=== PATIENT | male | born 1990 | race Hispanic/Latino ===

== ENCOUNTER 2021-08-18 21:50 | Inpatient (IN) | payer BC ==
[~2021-08-18] VITALS: Ht 182.9 cm; Wt 90.7 kg
--- NOTE | 2021-08-18 23:54 | PCM.HP ---
HISTORY & PHYSICAL HISTORY & PHYSICAL DATE OF ADMISSION: 08/18/21 TIME: 11:45pm CHIEF COMPLAINT: SOB, Cough, Congestion, Fever and Chills HISTORY OF PRESENT ILLNESS: Mr Short is a 31yo HM who presents to [facility] as a transfer patient from [facility] for Acute Respiratory Failure due to COVID-19 Pneumonia. Patient reports having worsening SOB, cough (mostly non-productive), congestion, fever and chills for the past 7-10 days. He also reports losing his sense of taste and smell for several days, but states that these have since returned to normal. Pt is also complaining of feeling light-headed with generalized weakness, to the point where he can barely walk to the Restroom alone without assistance. Patient was seen by his PCP in clinic earlier today where he was noted to be tachycardic (HR 130's), tachypneic (RR 30-40's), and hypoxic (O2 sats 80-85% RA) with moderate respiratory distress. A SARS-CoV-2 Rapid Ag Test done in clinic was found to be negative. Pt was then sent to the [place] ED for further evaluation at which time a COVID PCR test was found to be positive. Given Pt's worsening symptoms and the ED Physician's concern for eventual intubation, Pt was then transferred here to [facility] for a higher level of care. PAST MEDICAL HISTORY: Denies. PAST SURGICAL HISTORY: Denies. SOCIAL HISTORY: Pt does not smoke, drink alcohol, or use recreational drugs. He currently works in [employer]. FAMILY HISTORY: Mother alive at age 55 in good health. Father alive at age 56 also in good health. ALLERGIES: NKDA HOME MEDICATIONS: None REVIEW OF SYSTEMS: See HPI above. The remainder of the ROS to include constitutional, head, eyes, ears, nose, throat, respiratory, cardiovascular, gastrointestinal, genitourinary, musculoskeletal, dermatological, neurological, psychiatric, and lymphatic are all negative unless otherwise noted above in the HPI. PHYSICAL EXAMINATION: VITAL SIGNS: T 99.3, HR 89, RR 16, BP 126/85, O2 sat 86% 3L O2 NC GENERAL: Very anxious appearing. No family or friends currently present at bedside. HEENT: NC/AT. PERRLA. EOMI. MMM. Neck is supple. LUNGS: Decreased BS BL. No wheezing, rales, or rhonchi. HEART: Normal S1S2. RRR. No murmurs, rubs, gallops, or thrills. ABDOMEN: Soft. ND. NTTP. No rebound or guarding. Normal BS throughout. EXTREMITIES: No pitting edema noted. Weak, but moving all 4 extremities equally and completely off the bed. NEUROLOGIC: AAOx3. No motor or sensory deficits noted. Gait was not assessed at this time. LABORATORY DATA (Done in [place]): Reviewed and significant for COVID PCR positive, D-dimer 228, TPN <0.012, ESR 38, WBC 4.9, Gluc 118, AST 168, ALT 131, LDH 1560, CRP 45, Ferritin 1350, AB.44/34/83 IMAGING STUDIES (Done in [facility]): 1) CXR: Stigmata of early COVID-19 PNA with BL ground glass infiltrates. ASSESSMENT / PLAN: 1) Acute Hypoxemic Respiratory Failure: Will continue to monitor closely and provide supportive care PRN. Will also wean off O2 as tolerated. 2) COVID-19 Infection: Pt states that he has not yet been vaccinated. Will start Remdesivir, Dexamethasone, Vitamin C, Zinc, and check a Vitamin D level . 3) BL Pneumonia: Likely due to #2 above, but will go ahead and start Rocephin and Azithromycin for now until all cultures result. Will also check for Influenza. 4) Mildly Elevated LFTs: Will recheck labs in the AM, and consider obtaining a RUQ sonogram to further evaluate if these levels should worsen overnight. Currently, patient reports no abdominal pain, nausea, or vomiting. 5) Generalized Weakness: Due to acute illness. Will provide supportive care PRN. 6) GI and DVT prophylaxis: Will start Pepcid and Lovenox (1/2 T-dose given #2 above). TARA THOMPSON MD Aug 18, 2021 23:54
[2021-08-19] MEDS ORDERED: TYLENOL PO PRN
[2021-08-19] MEDS ORDERED: REMDESIVIR (EUA) 200 MG in NS 100ML 100 ML IV STA
[2021-08-19 00:28] VITALS: BP 126/85
[2021-08-19] MEDS: DECADRON IV SCH ×2 (01:00→09:06)
[2021-08-19] MEDS ORDERED: NS 250ML 250 ML ONE ×2 (02:17→09:00)
[2021-08-19 03:15] LABS: BILIRUBIN,URINE NEGATIVE (NEGATIVE)
[2021-08-19 04:51] LABS: BASOPHIL % 0.4 % (0.0-0.2); LYMPHOCYTES # 0.47 10^3/uL1 (1.0-4.8); LYMPHOCYTES % 8.9 % (24.0-44.0); MEAN CORP HGB 29.1 pg (26-34); MONOCYTES # 0.2 10^3/uL (0.3-0.8); NEUTROPHIL # 4.6 10^3/uL (1.8-7.7); NEUTROPHILS % 87.7 % (41.0-85.0); PLATELET COUNT 145 10^3/uL (150-400); RED CELL DISTRIBUTION WIDTH 12.2 % (11.5-14.5)
--- NOTE | 2021-08-19 05:36 | NUR ---
Dr Aguilar ordered a Vitamin D 25 hydroxy lab to be drawn in the am. The only Vit D lab available to order in the computer is a Vitamin D total hydroxy lab. Lab voiced that the Vitamin D hydroxy has been changed to the vitamin D total hydroxy and the results would be the same. Dr Aguilar notified and left message on voice mail.(no pt information was disclosed).
[2021-08-19 05:38] LABS: CALCIUM 8.5 mg/dL (8.4-10.5); CARBON DIOXIDE 24.3 mmol/L (20.0-32)
[2021-08-19] MEDS ORDERED: NS 100ML 100 ML IV ONE (06:49)
[2021-08-19] MEDS ORDERED: ROCEPHIN ONE (06:49)
[2021-08-19] MEDS: ROCEPHIN 1,000 MG in NS 100ML 100 ML IV SCH (06:51)
--- NOTE | 2021-08-19 08:35 | DIREP ---
PROCEDURE:CHEST 1 VIEW COMPARISON:[facility], CR, XRAY CHEST SINGLE VW, 08/18/2021, 04:03 PM. INDICATIONS:COVID-19 FINDINGS: LUNGS/PLEURA:There are ground-glass opacities scattered throughout both lungs increased compared to prior study. VASCULATURE:Normal. Unremarkable pulmonary vasculature. CARDIAC:Normal. No cardiac silhouette abnormality or cardiomegaly. MEDIASTINUM:Normal. No visible mass or adenopathy. BONES:Normal. No fracture or visible bony lesion. OTHER:Negative. CONCLUSION:Interval worsening with increasing scattered ground-glass opacities throughout both lungs compared to prior study. Dictated by: Kuldip Palencia M.D. on 08/19/2021 at 08:33 AM
[2021-08-19] MEDS ORDERED: LOVENOX SQ SCH (09:00)
--- NOTE | 2021-08-19 09:00 | PCM.EKG ---
[facility] Test Date: 2021-08-19 Test Time: 07:23:24 Pat Name: GEETHA LENNON Department: Room: 312 A Gender: M [employer]: : 1990 Requested By: TARA THOMPSON Order Number: [id number] Reading MD: Measurements Intervals [place] Rate: 77 P: 41 AL: 165 QRS: -12 QRSD: 97 T: 16 QT: 383 QTc: 434 Interpretive Statements Sinus rhythm No previous ECG available for comparison Please click the below link to view image of tracing.
[2021-08-19] MEDS: ZINC SULFATE PO SCH (09:07)
[2021-08-19] MEDS: MUCINEX PO SCH ×2 (09:07→21:00)
[2021-08-19] MEDS: PEPCID PO SCH ×2 (09:08→21:00)
[2021-08-19] MEDS: VITAMIN C PO SCH ×2 (09:08→21:00)
[2021-08-19] MEDS: ZITHROMAX 500 MG in NS 250ML 250 ML IV SCH (09:08)
[2021-08-19] MEDS ORDERED: REMDESIVIR IV ONE (09:24)
[2021-08-19 12:09] VITALS: BP 124/79
--- NOTE | 2021-08-19 14:38 | PRM.PN ---
Subjective Subjective Date: Aug 19, 2021 Time: 09:00 Subjective Patient still short of breath with any minimal exertion, on 3 L/min nasal cannula. Review of Systems Constitutional: Chills, Weakness Respiratory: Cough, Dry, Shortness of breath Cardiovascular: Palpitations Objective Vitals and I/O Vital Sign - Last 24 Hours 08/19/21 08/19/21 08/19/21 08/19/21 00:28 00:28 02:04 07:43 Temp 99.3 Resp 16 16 B/P (MAP) 126/85 (99) Pulse Ox 86 86 92 O2 Delivery Nasal Canula Nasal Cannula Nasal Cannula O2 Flow Rate 3.00 3.00 3.00 FiO2 32 08/19/21 08/19/21 10:30 12:09 Temp 99.1 Pulse 79 78 Resp 20 19 B/P (MAP) 124/79 (94) Pulse Ox 90 98 O2 Delivery T-piece FiO2 32 General: Alert, Oriented X3, moderate distress HEENT: Atraumatic, PERRLA Neck: Supple, No JVD Lungs: Other (Coarse bilateral breath sounds, respirations labored) Heart: Regular rate, Normal S1, Normal S2 Abdomen: Normal bowel sounds, Soft Extremities: No clubbing, No cyanosis Skin: No rashes, No breakdown Neuro: Normal speech, Normal tone Psych/Mental Status: Mental status NL, Mood NL All Results(Lab/Rad) Laboratory Tests Test 08/19/21 01:55 08/19/21 04:36 08/19/21 12:45 Urine Collection Type CCMS Urine Color YELLOW Urine Appearance CLEAR Urine Bilirubin NEGATIVE Urine Ketones 2+ Urine Specific [place] 1.025 Urine pH 7.0 Urine Protein 2+ Urine Urobilinogen 1.0 E.U./dL Urine Nitrate NEGATIVE Urine Leukocyte Esterase NEGATIVE Urine Glucose (Auto)(UA) NEGATIVE Urine Blood NEGATIVE Urine RBC NONE SEEN RBC/HPF Urine WBC 0-2 WBC/HPF Urine Squamous Epithelial Cells FEW Urine Bacteria FEW White Blood Count 5.3 10^3/uL Red Blood Count 5.19 10^6/uL Hemoglobin 15.1 g/dL Hematocrit 44.9 % Mean Corpuscular Volume 86.5 fL Mean Corpuscular Hemoglobin 29.1 pg Mean Corpuscular Hemoglobin Concent 33.6 g/dL Red Cell Distribution Width 12.2 % Platelet Count 145 10^3/uL Mean Platelet Volume 9.7 fL Neutrophils (%) (Auto) 87.7 % Lymphocytes (%) (Auto) 8.9 % Monocytes (%) (Auto) 3.0 % Neutrophils # (Auto) 4.6 10^3/uL Lymphocytes # (Auto) 0.47 10^3/uL1 Monocytes # (Auto) 0.2 10^3/uL Absolute Immature Granulocyte (auto 0.02 10^3 u/L Absolute Eosinophils (auto) 0.0 10^3/uL Immature Granulocytes % 0.40 % Eosinophils % 0.0 % Basophils % 0.4 % Basophils # 0.0 10^3/uL Prothrombin Time 10.6 SEC Prothrombin Time INR (Non-Therap) 1.0 Activated Partial Thromboplast Time 28.2 SEC D-Dimer 0.69 mg/L Sodium Level 137 mmol/L Potassium Level 3.9 mmol/L Chloride Level 102.0 mmol/L Carbon Dioxide Level 24.3 mmol/L Anion Gap 14.6 Blood Urea Nitrogen 10 mg/dL Creatinine 0.90 mg/dL Estimated GFR () 119.9 Est GFR (CKD-EPI)(Non-Afr [place]) 99.1 BUN/Creatinine Ratio 11.0 Glucose Level 155 mg/dL Calcium Level 8.5 mg/dL Phosphorus Level 3.2 mg/dL Magnesium Level 2.2 mg/dL Ferritin 2054 ng/mL Total Bilirubin 0.4 mg/dL Aspartate Amino Transf (AST/SGOT) 105 U/L Alanine Aminotransferase (ALT/SGPT) 130 U/L Alkaline Phosphatase 81 U/L Lactate Dehydrogenase 438 U/L C-Reactive Protein 6.27 mg/dL Total Protein 7.1 g/dL Albumin 3.1 g/dL Globulin 4.0 Albumin/Globulin Ratio 0.775 Vitamin D 25-Hydroxy 23.8 ng/mL Procalcitonin < 0.05 ng/mL Influenza Type A Antigen NEGATIVE Influenza Type B Antigen NEGATIVE Current Medications Medications (Trade) Dose Ordered Sig/Sanjiv Route PRN Reason Start Time Stop Time Status Last Admin Dose Admin Acetaminophen (Tylenol) 1,000 mg Q6H PRN PO Fever or Pain 08/19/21 00:00 09/18/21 00:00 08/19/21 02:20 Remdesivir 200 mg/ Sodium Chloride 140 ml @ 120.69 mls/ hr OT STAT IV 08/19/21 00:00 08/19/21 09:25 DC 08/19/21 01:30 Remdesivir 100 mg/ Sodium Chloride 120 ml @ 111.111 mls/hr Q24HRS IV 08/19/21 22:00 09/18/21 21:59 Ascorbic Acid (Vitamin C) 500 mg BID PO 08/19/21 09:00 09/18/21 08:59 08/19/21 09:08 Zinc Sulfate (Zinc Sulfate) 220 mg DAILY PO 08/19/21 09:00 09/18/21 08:59 08/19/21 09:07 Enoxaparin Sodium (Lovenox) 40 mg BID SQ 08/19/21 09:00 09/18/21 08:59 08/19/21 09:08 Famotidine (Pepcid) 20 mg BID PO 08/19/21 09:00 09/18/21 08:59 08/19/21 09:08 Ceftriaxone Sodium 1000 mg/ Sodium Chloride 100 ml @ 100 mls/hr Q24HRS IV 08/19/21 00:00 09/18/21 00:00 08/19/21 06:51 Azithromycin 500 mg/Sodium Chloride 250 ml @ 175 mls/hr Q24HRS IV 08/19/21 00:00 09/18/21 00:00 08/19/21 09:08 Guaifenesin (Mucinex) 600 mg BID PO 08/19/21 09:00 09/18/21 08:59 08/19/21 09:07 Sodium Chloride 250 ml @ ud STK-MED ONCE .ROUTE 08/19/21 02:17 08/19/21 02:17 DC Ceftriaxone Sodium (Rocephin) 1,000 mg STK-MED ONCE .ROUTE 08/19/21 06:49 08/19/21 06:49 DC Sodium Chloride 100 ml @ ud STK-MED ONCE IV 08/19/21 06:49 08/19/21 06:49 DC Sodium Chloride 250 ml @ ud STK-MED ONCE .ROUTE 08/19/21 09:00 08/19/21 09:01 DC Assessment/Plan Assessment/Plan Assessment/Plan Plan Oxygen to keep saturation more than 92% Remdesivir Steroids Continue to biotics GI and DVT prophylaxis Problems: (1) Pneumonia due to COVID-19 virus ICD Code: U07.1 - COVID-19; J12.82 - Pneumonia due to coronavirus disease 2019 SNOMED: 771736823520107702 (2) Acute and chronic respiratory failure with hypoxia ICD Code: J96.21 - Acute and chronic respiratory failure with hypoxia SNOMED: 61813690, 532401471 JEREMIAH SUN MD Aug 19, 2021 14:38
[2021-08-19 17:26] VITALS: BP 112/66
[2021-08-19 20:00] VITALS: BP 113/78
[2021-08-19] MEDS: LOVENOX SQ SCH (21:00)
[2021-08-19] MEDS: REMDESIVIR (EUA) 100 MG in NS 100ML 100 ML IV SCH (21:52)
[2021-08-20] VITALS: BP 113/72
[2021-08-20] MEDS: ROCEPHIN 1,000 MG in NS 100ML 100 ML IV SCH
[2021-08-20] MEDS: ZITHROMAX 500 MG in NS 250ML 250 ML IV SCH (02:00)
[2021-08-20 04:00] VITALS: BP 104/68
[2021-08-20 05:22] LABS: BASOPHIL % 0.1 % (0.0-0.2); LYMPHOCYTES # 0.68 10^3/uL1 (1.0-4.8); LYMPHOCYTES % 9.3 % (24.0-44.0); MONOCYTES # 0.6 10^3/uL (0.3-0.8); MONOCYTES % 8.2 % (5.0-12.0); NEUTROPHILS % 82.4 % (41.0-85.0); PLATELET COUNT 176 10^3/uL (150-400); RED CELL DISTRIBUTION WIDTH 12.2 % (11.5-14.5)
[2021-08-20 05:51] LABS: CALCIUM 8.7 mg/dL (8.4-10.5); CARBON DIOXIDE 25.9 mmol/L (20.0-32)
[2021-08-20 07:00] VITALS: BP 116/77
[2021-08-20 08:14] LABS: HEP A AB, IgM Negative (Negative)
[2021-08-20] MEDS: VITAMIN C PO SCH ×2 (08:53→21:00)
[2021-08-20] MEDS: DECADRON IV SCH (08:53)
[2021-08-20] MEDS: LOVENOX SQ SCH ×2 (08:53→21:00)
[2021-08-20] MEDS: MUCINEX PO SCH ×2 (08:54→21:00)
[2021-08-20] MEDS: PEPCID PO SCH ×2 (08:54→21:00)
[2021-08-20] MEDS: ZINC SULFATE PO SCH (08:54)
[2021-08-20 11:11] VITALS: BP 103/65
--- NOTE | 2021-08-20 15:02 | PRM.PN ---
Subjective Subjective Date: Aug 20, 2021 Time: 09:00 Subjective Patient out of bed in a chair. He said that he is breathing better when he sits outside bed in a chair. Using incentive spirometry. Oxygen saturation 93% on 3 L/min nasal cannula. Review of Systems Constitutional: Chills, Weakness Respiratory: Cough, Dry, Shortness of breath Cardiovascular: Palpitations Objective Vitals and I/O Vital Sign - Last 24 Hours 08/19/21 08/19/21 08/19/21 08/20/21 17:26 20:00 20:52 00:00 Temp 98.6 98.6 98.4 Pulse 78 80 78 80 Resp 18 18 18 20 B/P (MAP) 112/66 (81) 113/78 (90) 113/72 (86) Pulse Ox 92 93 94 92 O2 Delivery Nasal Canula Nasal Canula Nasal Cannula Nasal Canula O2 Flow Rate 3.00 3.00 3.00 3.00 FiO2 32 08/20/21 08/20/21 08/20/21 08/20/21 01:07 01:30 04:00 07:00 Temp 98.0 98.8 Pulse 80 79 Resp 20 17 B/P (MAP) 104/68 (80) 116/77 (90) Pulse Ox 91 89 O2 Delivery Nasal Cannula Nasal Cannula Nasal [place]ula O2 Flow Rate 3.00 3.00 08/20/21 08/20/21 08/20/21 07:10 08:20 11:11 Temp 98.3 Pulse 84 76 Resp 20 16 B/P (MAP) 103/65 (78) Pulse Ox 92 93 O2 Delivery Nasal Cannula Nasal Cannula O2 Flow Rate 3.00 3.00 FiO2 32 Intake and Output 08/20/21 06:59 Intake Total 1602 ml Output Total 500 ml Balance 1102 ml General: Alert, Oriented X3, moderate distress HEENT: Atraumatic, PERRLA Neck: Supple, No JVD Lungs: Other (Coarse bilateral breath sounds, respirations labored) Heart: Regular rate, Normal S1, Normal S2 Abdomen: Normal bowel sounds, Soft Extremities: No clubbing, No cyanosis Skin: No rashes, No breakdown Neuro: Normal speech, Normal tone Psych/Mental Status: Mental status NL, Mood NL All Results(Lab/Rad) Laboratory Tests Test 08/19/21 01:55 08/19/21 04:36 08/19/21 12:45 Urine Collection Type CCMS Urine Color YELLOW Urine Appearance CLEAR Urine Bilirubin NEGATIVE Urine Ketones 2+ Urine Specific [place] 1.025 Urine pH 7.0 Urine Protein 2+ Urine Urobilinogen 1.0 E.U./dL Urine Nitrate NEGATIVE Urine Leukocyte Esterase NEGATIVE Urine Glucose (Auto)(UA) NEGATIVE Urine Blood NEGATIVE Urine RBC NONE SEEN RBC/HPF Urine WBC 0-2 WBC/HPF Urine Squamous Epithelial Cells FEW Urine Bacteria FEW White Blood Count 5.3 10^3/uL Red Blood Count 5.19 10^6/uL Hemoglobin 15.1 g/dL Hematocrit 44.9 % Mean Corpuscular Volume 86.5 fL Mean Corpuscular Hemoglobin 29.1 pg Mean Corpuscular Hemoglobin Concent 33.6 g/dL Red Cell Distribution Width 12.2 % Platelet Count 145 10^3/uL Mean Platelet Volume 9.7 fL Neutrophils (%) (Auto) 87.7 % Lymphocytes (%) (Auto) 8.9 % Monocytes (%) (Auto) 3.0 % Neutrophils # (Auto) 4.6 10^3/uL Lymphocytes # (Auto) 0.47 10^3/uL1 Monocytes # (Auto) 0.2 10^3/uL Absolute Immature Granulocyte (auto 0.02 10^3 u/L Absolute Eosinophils (auto) 0.0 10^3/uL Immature Granulocytes % 0.40 % Eosinophils % 0.0 % Basophils % 0.4 % Basophils # 0.0 10^3/uL Prothrombin Time 10.6 SEC Prothrombin Time INR (Non-Therap) 1.0 Activated Partial Thromboplast Time 28.2 SEC D-Dimer 0.69 mg/L Sodium Level 137 mmol/L Potassium Level 3.9 mmol/L Chloride Level 102.0 mmol/L Carbon Dioxide Level 24.3 mmol/L Anion Gap 14.6 Blood Urea Nitrogen 10 mg/dL Creatinine 0.90 mg/dL Estimated GFR () 119.9 Est GFR (CKD-EPI)(Non-Afr [place]) 99.1 BUN/Creatinine Ratio 11.0 Glucose Level 155 mg/dL Calcium Level 8.5 mg/dL Phosphorus Level 3.2 mg/dL Magnesium Level 2.2 mg/dL Ferritin 2054 ng/mL Total Bilirubin 0.4 mg/dL Aspartate Amino Transf (AST/SGOT) 105 U/L Alanine Aminotransferase (ALT/SGPT) 130 U/L Alkaline Phosphatase 81 U/L Lactate Dehydrogenase 438 U/L C-Reactive Protein 6.27 mg/dL Total Protein 7.1 g/dL Albumin 3.1 g/dL Globulin 4.0 Albumin/Globulin Ratio 0.775 Vitamin D 25-Hydroxy 23.8 ng/mL Procalcitonin < 0.05 ng/mL Influenza Type A Antigen NEGATIVE Influenza Type B Antigen NEGATIVE Current Medications Medications (Trade) Dose Ordered Sig/Sanjiv Route PRN Reason Start Time Stop Time Status Last Admin Dose Admin Acetaminophen (Tylenol) 1,000 mg Q6H PRN PO Fever or Pain 08/19/21 00:00 09/18/21 00:00 08/19/21 02:20 Remdesivir 200 mg/ Sodium Chloride 140 ml @ 120.69 mls/ hr OT STAT IV 08/19/21 00:00 08/19/21 09:25 DC 08/19/21 01:30 Remdesivir 100 mg/ Sodium Chloride 120 ml @ 111.111 mls/hr Q24HRS IV 08/19/21 22:00 09/18/21 21:59 Ascorbic Acid (Vitamin C) 500 mg BID PO 08/19/21 09:00 09/18/21 08:59 08/19/21 09:08 Zinc Sulfate (Zinc Sulfate) 220 mg DAILY PO 08/19/21 09:00 09/18/21 08:59 08/19/21 09:07 Enoxaparin Sodium (Lovenox) 40 mg BID SQ 08/19/21 09:00 09/18/21 08:59 08/19/21 09:08 Famotidine (Pepcid) 20 mg BID PO 08/19/21 09:00 09/18/21 08:59 08/19/21 09:08 Ceftriaxone Sodium 1000 mg/ Sodium Chloride 100 ml @ 100 mls/hr Q24HRS IV 08/19/21 00:00 09/18/21 00:00 08/19/21 06:51 Azithromycin 500 mg/Sodium Chloride 250 ml @ 175 mls/hr Q24HRS IV 08/19/21 00:00 09/18/21 00:00 08/19/21 09:08 Guaifenesin (Mucinex) 600 mg BID PO 08/19/21 09:00 09/18/21 08:59 08/19/21 09:07 Sodium Chloride 250 ml @ ud STK-MED ONCE .ROUTE 08/19/21 02:17 08/19/21 02:17 DC Ceftriaxone Sodium (Rocephin) 1,000 mg STK-MED ONCE .ROUTE 08/19/21 06:49 08/19/21 06:49 DC Sodium Chloride 100 ml @ ud STK-MED ONCE IV 08/19/21 06:49 08/19/21 06:49 DC Sodium Chloride 250 ml @ ud STK-MED ONCE .ROUTE 08/19/21 09:00 08/19/21 09:01 DC Assessment/Plan Assessment/Plan Assessment/Plan Plan Oxygen to keep saturation more than 92% Remdesivir Steroids Continue to biotics GI and DVT prophylaxis Problems: (1) Acute respiratory failure with hypoxia ICD Code: J96.01 - Acute respiratory failure with hypoxia SNOMED: 30849768, 948929088 (2) Pneumonia due to COVID-19 virus ICD Code: U07.1 - COVID-19; J12.82 - Pneumonia due to coronavirus disease 2019 SNOMED: [id number] JEREMIAH SUN MD Aug 20, 2021 15:02
[2021-08-20 15:23] VITALS: BP 102/70
[2021-08-20 20:00] VITALS: BP 115/78
[2021-08-20] MEDS: REMDESIVIR (EUA) 100 MG in NS 100ML 100 ML IV SCH (21:55)
[2021-08-21] VITALS: BP 114/76
[2021-08-21] MEDS: ROCEPHIN 1,000 MG in NS 100ML 100 ML IV SCH
[2021-08-21] MEDS: ZITHROMAX 500 MG in NS 250ML 250 ML IV SCH (01:30)
[2021-08-21 04:00] VITALS: BP 121/68
[2021-08-21 05:07] LABS: BASOPHIL % 0.1 % (0.0-0.2); LYMPHOCYTES # 0.76 10^3/uL1 (1.0-4.8); LYMPHOCYTES % 11.4 % (24.0-44.0); MONOCYTES # 0.6 10^3/uL (0.3-0.8); MONOCYTES % 9.4 % (5.0-12.0); NEUTROPHIL # 5.3 10^3/uL (1.8-7.7); NEUTROPHILS % 79.1 % (41.0-85.0); PLATELET COUNT 226 10^3/uL (150-400); RED CELL DISTRIBUTION WIDTH 12.2 % (11.5-14.5)
[2021-08-21 05:11] LABS: CALCIUM 8.6 mg/dL (8.4-10.5)
[2021-08-21 06:58] VITALS: BP 121/83
[2021-08-21] MEDS: DECADRON IV SCH (08:34)
[2021-08-21] MEDS: VITAMIN C PO SCH ×2 (08:34→20:19)
[2021-08-21] MEDS: LOVENOX SQ SCH ×2 (08:34→20:19)
[2021-08-21] MEDS: MUCINEX PO SCH ×2 (08:34→20:19)
[2021-08-21] MEDS: PEPCID PO SCH ×2 (08:34→20:19)
[2021-08-21] MEDS: ZINC SULFATE PO SCH (08:34)
[2021-08-21 11:31] VITALS: BP 110/75
--- NOTE | 2021-08-21 13:32 | PRM.PN ---
Subjective Subjective Date: Aug 21, 2021 Time: 09:00 Subjective Feeling better this morning, still requiring 3 L of oxygen via nasal cannula. VTE VTE Risk Total Score: 0 VTE Risk Score VTE Risk: Score 0-1 = Low Risk (Aggressive mobilization; early ambulation; no VTE prophylaxis required) Score 2: Moderate Risk (Intermittent/Pneumatic Compression Device OR Lovenox/Heparin/Coumadin) Score 3-4: High Risk (Intermittent/Pneumatic Compression Device AND Lovenox/Heparin/Coumadin) Score > or =5: Highest Risk (Intermittent/Pneumatic Compression Device AND Lovenox/Heparin/Coumadin) Antico:Hep/LMWH/Coum/Xarelto: Yes Review of Systems Constitutional: Chills, Weakness Respiratory: Cough, Dry, Shortness of breath Cardiovascular: Palpitations Objective Vitals and I/O Vital Sign - Last 24 Hours 08/20/21 08/20/21 08/20/21 08/21/21 15:23 20:00 23:49 00:00 Temp 99.1 97.7 98.0 Pulse 84 77 66 Resp 18 16 18 B/P (MAP) 102/70 (81) 115/78 (90) 114/76 (89) Pulse Ox 93 90 92 O2 Delivery Nasal Canula Nasal Cannula Nasal Canula O2 Flow Rate 3.00 3.00 3.00 08/21/21 08/21/21 08/21/21 08/21/21 04:00 06:58 07:09 07:32 Temp 98.3 98.4 Pulse 88 82 84 Resp 16 17 16 B/P (MAP) 121/68 (85) 121/83 (96) Pulse Ox 94 96 93 O2 Delivery Nasal [place]ula Nasal Cannula Nasal Cannula O2 Flow Rate 3.00 3.00 3.00 FiO2 32 08/21/21 08/21/21 09:10 11:31 Temp 97.6 Pulse 74 60 Resp 20 16 B/P (MAP) 110/75 (87) Pulse Ox 94 95 O2 Delivery Nasal Cannula O2 Flow Rate 1.00 FiO2 24 Intake and Output 08/21/21 07:00 Intake Total 1209.5 ml Balance 1209.5 ml General: Alert, Oriented X3, moderate distress HEENT: Atraumatic, PERRLA Neck: Supple, No JVD Lungs: Other (Coarse bilateral breath sounds, respirations labored) Heart: Regular rate, Normal S1, Normal S2 Abdomen: Normal bowel sounds, Soft Extremities: No clubbing, No cyanosis Skin: No rashes, No breakdown Neuro: Normal speech, Normal tone Psych/Mental Status: Mental status NL, Mood NL All Results(Lab/Rad) Laboratory Tests Test 08/19/21 01:55 08/19/21 04:36 08/19/21 12:45 Urine Collection Type CCMS Urine Color YELLOW Urine Appearance CLEAR Urine Bilirubin NEGATIVE Urine Ketones 2+ Urine Specific [place] 1.025 Urine pH 7.0 Urine Protein 2+ Urine Urobilinogen 1.0 E.U./dL Urine Nitrate NEGATIVE Urine Leukocyte Esterase NEGATIVE Urine Glucose (Auto)(UA) NEGATIVE Urine Blood NEGATIVE Urine RBC NONE SEEN RBC/HPF Urine WBC 0-2 WBC/HPF Urine Squamous Epithelial Cells FEW Urine Bacteria FEW White Blood Count 5.3 10^3/uL Red Blood Count 5.19 10^6/uL Hemoglobin 15.1 g/dL Hematocrit 44.9 % Mean Corpuscular Volume 86.5 fL Mean Corpuscular Hemoglobin 29.1 pg Mean Corpuscular Hemoglobin Concent 33.6 g/dL Red Cell Distribution Width 12.2 % Platelet Count 145 10^3/uL Mean Platelet Volume 9.7 fL Neutrophils (%) (Auto) 87.7 % Lymphocytes (%) (Auto) 8.9 % Monocytes (%) (Auto) 3.0 % Neutrophils # (Auto) 4.6 10^3/uL Lymphocytes # (Auto) 0.47 10^3/uL1 Monocytes # (Auto) 0.2 10^3/uL Absolute Immature Granulocyte (auto 0.02 10^3 u/L Absolute Eosinophils (auto) 0.0 10^3/uL Immature Granulocytes % 0.40 % Eosinophils % 0.0 % Basophils % 0.4 % Basophils # 0.0 10^3/uL Prothrombin Time 10.6 SEC Prothrombin Time INR (Non-Therap) 1.0 Activated Partial Thromboplast Time 28.2 SEC D-Dimer 0.69 mg/L Sodium Level 137 mmol/L Potassium Level 3.9 mmol/L Chloride Level 102.0 mmol/L Carbon Dioxide Level 24.3 mmol/L Anion Gap 14.6 Blood Urea Nitrogen 10 mg/dL Creatinine 0.90 mg/dL Estimated GFR () 119.9 Est GFR (CKD-EPI)(Non-Afr [place]an) 99.1 BUN/Creatinine Ratio 11.0 Glucose Level 155 mg/dL Calcium Level 8.5 mg/dL Phosphorus Level 3.2 mg/dL Magnesium Level 2.2 mg/dL Ferritin 2054 ng/mL Total Bilirubin 0.4 mg/dL Aspartate Amino Transf (AST/SGOT) 105 U/L Alanine Aminotransferase (ALT/SGPT) 130 U/L Alkaline Phosphatase 81 U/L Lactate Dehydrogenase 438 U/L C-Reactive Protein 6.27 mg/dL Total Protein 7.1 g/dL Albumin 3.1 g/dL Globulin 4.0 Albumin/Globulin Ratio 0.775 Vitamin D 25-Hydroxy 23.8 ng/mL Procalcitonin < 0.05 ng/mL Influenza Type A Antigen NEGATIVE Influenza Type B Antigen NEGATIVE Current Medications Medications (Trade) Dose Ordered Sig/Sanjiv Route PRN Reason Start Time Stop Time Status Last Admin Dose Admin Acetaminophen (Tylenol) 1,000 mg Q6H PRN PO Fever or Pain 08/19/21 00:00 09/18/21 00:00 08/19/21 02:20 Remdesivir 200 mg/ Sodium Chloride 140 ml @ 120.69 mls/ hr OT STAT IV 08/19/21 00:00 08/19/21 09:25 DC 08/19/21 01:30 Remdesivir 100 mg/ Sodium Chloride 120 ml @ 111.111 mls/hr Q24HRS IV 08/19/21 22:00 09/18/21 21:59 Ascorbic Acid (Vitamin C) 500 mg BID PO 08/19/21 09:00 09/18/21 08:59 08/19/21 09:08 Zinc Sulfate (Zinc Sulfate) 220 mg DAILY PO 08/19/21 09:00 09/18/21 08:59 08/19/21 09:07 Enoxaparin Sodium (Lovenox) 40 mg BID SQ 08/19/21 09:00 09/18/21 08:59 08/19/21 09:08 Famotidine (Pepcid) 20 mg BID PO 08/19/21 09:00 09/18/21 08:59 08/19/21 09:08 Ceftriaxone Sodium 1000 mg/ Sodium Chloride 100 ml @ 100 mls/hr Q24HRS IV 08/19/21 00:00 09/18/21 00:00 08/19/21 06:51 Azithromycin 500 mg/Sodium Chloride 250 ml @ 175 mls/hr Q24HRS IV 08/19/21 00:00 09/18/21 00:00 08/19/21 09:08 Guaifenesin (Mucinex) 600 mg BID PO 08/19/21 09:00 09/18/21 08:59 08/19/21 09:07 Sodium Chloride 250 ml @ ud STK-MED ONCE .ROUTE 08/19/21 02:17 08/19/21 02:17 DC Ceftriaxone Sodium (Rocephin) 1,000 mg STK-MED ONCE .ROUTE 08/19/21 06:49 08/19/21 06:49 DC Sodium Chloride 100 ml @ ud STK-MED ONCE IV 08/19/21 06:49 08/19/21 06:49 DC Sodium Chloride 250 ml @ ud STK-MED ONCE .ROUTE 08/19/21 09:00 08/19/21 09:01 DC Assessment/Plan Assessment/Plan Assessment/Plan Plan Oxygen to keep saturation more than 92% Remdesivir Steroids Will discontinue antibiotics, procalcitonin has been low,See it 3 days GI and DVT prophylaxis Problems: (1) Acute respiratory failure with hypoxia ICD Code: J96.01 - Acute respiratory failure with hypoxia SNOMED: 51930927, 926717123 (2) Pneumonia due to COVID-19 virus ICD Code: U07.1 - COVID-19; J12.82 - Pneumonia due to coronavirus disease 2019 SNOMED: [id number] JEREMIAH SUN MD Aug 21, 2021 13:32
[2021-08-21 15:22] VITALS: BP 106/69
[2021-08-21 19:00] VITALS: BP 126/85
[2021-08-21] MEDS: REMDESIVIR (EUA) 100 MG in NS 100ML 100 ML IV SCH (20:18)
[2021-08-22 00:05] VITALS: BP 118/80
[2021-08-22 05:07] LABS: BASOPHIL % 0.2 % (0.0-0.2); LYMPHOCYTES # 1.03 10^3/uL1 (1.0-4.8); LYMPHOCYTES % 17.3 % (24.0-44.0); MEAN CORP HGB 29.1 pg (26-34); MONOCYTES # 0.6 10^3/uL (0.3-0.8); MONOCYTES % 9.7 % (5.0-12.0); NEUTROPHIL # 4.3 10^3/uL (1.8-7.7); NEUTROPHILS % 72.8 % (41.0-85.0); PLATELET COUNT 255 10^3/uL (150-400)
[2021-08-22 05:17] VITALS: BP 110/76
[2021-08-22 05:31] LABS: CALCIUM 8.7 mg/dL (8.4-10.5); CARBON DIOXIDE 24.8 mmol/L (20.0-32)
--- NOTE | 2021-08-22 08:00 | NUR ---
DISCHARGE PLANNING PER REVIEW OF PATIENT'S CHART - PATIENT LIVES HOME WITH PARENTS AND IND WITH ALL ADL. POSSIBLE DISCHARGE TOMORROW. CM FAXED O2 REFERRAL TO [facility]. FAX CONFIRMATION CONFIRMED COMPLETE. CM NOTIFIED MAG HDEZ RN. CM NOTIFIED CHARGE NURSE, PRIYANKA ZAMUDIO RN- IF PATIENT NOT DISCHARGED BY 0910 TOMORROW AM THAT O2 CHALLENGE NEEDS TO BE REPEATED.
[2021-08-22 08:32] VITALS: BP 110/77
[2021-08-22] MEDS: MUCINEX PO SCH ×2 (08:52→19:57)
[2021-08-22] MEDS: PEPCID PO SCH ×2 (08:52→19:57)
[2021-08-22] MEDS: VITAMIN C PO SCH ×2 (08:52→19:56)
[2021-08-22] MEDS: DECADRON IV SCH (08:52)
[2021-08-22] MEDS: ZINC SULFATE PO SCH (08:52)
[2021-08-22] MEDS: LOVENOX SQ SCH ×2 (08:52→19:56)
--- NOTE | 2021-08-22 13:28 | PRM.PN ---
Subjective Subjective Date: Aug 22, 2021 Time: 12:00 Subjective Patient is slowly improving. Currently on 2 L/min nasal cannula. Still get short of breath with minimal exertion. VTE VTE Risk Total Score: 0 VTE Risk Score VTE Risk: Score 0-1 = Low Risk (Aggressive mobilization; early ambulation; no VTE prophylaxis required) Score 2: Moderate Risk (Intermittent/Pneumatic Compression Device OR Lovenox/Heparin/Coumadin) Score 3-4: High Risk (Intermittent/Pneumatic Compression Device AND Lovenox/Heparin/Coumadin) Score > or =5: Highest Risk (Intermittent/Pneumatic Compression Device AND Lovenox/Heparin/Coumadin) Antico:Hep/LMWH/Coum/Xarelto: Yes Review of Systems Constitutional: Chills, Weakness Respiratory: Cough, Dry, Shortness of breath Cardiovascular: Palpitations Objective Vitals and I/O Vital Sign - Last 24 Hours 08/21/21 08/21/21 08/21/21 08/21/21 15:22 19:00 20:05 22:00 Temp 97.6 97.7 Pulse 69 56 55 Resp 17 16 24 B/P (MAP) 106/69 (81) 126/85 (99) Pulse Ox 93 94 91 O2 Delivery Nasal Cannula Nasal Cannula O2 Flow Rate 3.00 3.00 08/22/21 08/22/21 08/22/21 08/22/21 00:05 05:17 07:10 07:10 Temp 98.2 97.6 Pulse 60 68 80 Resp 17 17 17 16 B/P (MAP) 118/80 (93) 110/76 (87) Pulse Ox 93 94 97 97 O2 Delivery Nasal Canula Nasal Cannula O2 Flow Rate 3.00 3.00 FiO2 32 08/22/21 08/22/21 08/22/21 08:32 08:40 12:51 Temp 97.7 Pulse 93 73 Resp 20 20 B/P (MAP) 110/77 (88) Pulse Ox 93 93 O2 Delivery Nasal Canula Nasal Cannula Nasal Canula O2 Flow Rate 2.00 2.00 2.00 Intake and Output 08/22/21 07:00 Intake Total 541.5 ml Balance 541.5 ml General: Alert, Oriented X3, moderate distress HEENT: Atraumatic, PERRLA Neck: Supple, No JVD Lungs: Other (Coarse bilateral breath sounds, respirations labored) Heart: Regular rate, Normal S1, Normal S2 Abdomen: Normal bowel sounds, Soft Extremities: No clubbing, No cyanosis Skin: No rashes, No breakdown Neuro: Normal speech, Normal tone Psych/Mental Status: Mental status NL, Mood NL All Results(Lab/Rad) Laboratory Tests Test 08/19/21 01:55 08/19/21 04:36 08/19/21 12:45 Urine Collection Type CCMS Urine Color YELLOW Urine Appearance CLEAR Urine Bilirubin NEGATIVE Urine Ketones 2+ Urine Specific [place] 1.025 Urine pH 7.0 Urine Protein 2+ Urine Urobilinogen 1.0 E.U./dL Urine Nitrate NEGATIVE Urine Leukocyte Esterase NEGATIVE Urine Glucose (Auto)(UA) NEGATIVE Urine Blood NEGATIVE Urine RBC NONE SEEN RBC/HPF Urine WBC 0-2 WBC/HPF Urine Squamous Epithelial Cells FEW Urine Bacteria FEW White Blood Count 5.3 10^3/uL Red Blood Count 5.19 10^6/uL Hemoglobin 15.1 g/dL Hematocrit 44.9 % Mean Corpuscular Volume 86.5 fL Mean Corpuscular Hemoglobin 29.1 pg Mean Corpuscular Hemoglobin Concent 33.6 g/dL Red Cell Distribution Width 12.2 % Platelet Count 145 10^3/uL Mean Platelet Volume 9.7 fL Neutrophils (%) (Auto) 87.7 % Lymphocytes (%) (Auto) 8.9 % Monocytes (%) (Auto) 3.0 % Neutrophils # (Auto) 4.6 10^3/uL Lymphocytes # (Auto) 0.47 10^3/uL1 Monocytes # (Auto) 0.2 10^3/uL Absolute Immature Granulocyte (auto 0.02 10^3 u/L Absolute Eosinophils (auto) 0.0 10^3/uL Immature Granulocytes % 0.40 % Eosinophils % 0.0 % Basophils % 0.4 % Basophils # 0.0 10^3/uL Prothrombin Time 10.6 SEC Prothrombin Time INR (Non-Therap) 1.0 Activated Partial Thromboplast Time 28.2 SEC D-Dimer 0.69 mg/L Sodium Level 137 mmol/L Potassium Level 3.9 mmol/L Chloride Level 102.0 mmol/L Carbon Dioxide Level 24.3 mmol/L Anion Gap 14.6 Blood Urea Nitrogen 10 mg/dL Creatinine 0.90 mg/dL Estimated GFR () 119.9 Est GFR (CKD-EPI)(Non-Afr [place]) 99.1 BUN/Creatinine Ratio 11.0 Glucose Level 155 mg/dL Calcium Level 8.5 mg/dL Phosphorus Level 3.2 mg/dL Magnesium Level 2.2 mg/dL Ferritin 2054 ng/mL Total Bilirubin 0.4 mg/dL Aspartate Amino Transf (AST/SGOT) 105 U/L Alanine Aminotransferase (ALT/SGPT) 130 U/L Alkaline Phosphatase 81 U/L Lactate Dehydrogenase 438 U/L C-Reactive Protein 6.27 mg/dL Total Protein 7.1 g/dL Albumin 3.1 g/dL Globulin 4.0 Albumin/Globulin Ratio 0.775 Vitamin D 25-Hydroxy 23.8 ng/mL Procalcitonin < 0.05 ng/mL Influenza Type A Antigen NEGATIVE Influenza Type B Antigen NEGATIVE Current Medications Medications (Trade) Dose Ordered Sig/Sanjiv Route PRN Reason Start Time Stop Time Status Last Admin Dose Admin Acetaminophen (Tylenol) 1,000 mg Q6H PRN PO Fever or Pain 08/19/21 00:00 09/18/21 00:00 08/19/21 02:20 Remdesivir 200 mg/ Sodium Chloride 140 ml @ 120.69 mls/ hr OT STAT IV 08/19/21 00:00 08/19/21 09:25 DC 08/19/21 01:30 Remdesivir 100 mg/ Sodium Chloride 120 ml @ 111.111 mls/hr Q24HRS IV 08/19/21 22:00 09/18/21 21:59 Ascorbic Acid (Vitamin C) 500 mg BID PO 08/19/21 09:00 09/18/21 08:59 08/19/21 09:08 Zinc Sulfate (Zinc Sulfate) 220 mg DAILY PO 08/19/21 09:00 09/18/21 08:59 08/19/21 09:07 Enoxaparin Sodium (Lovenox) 40 mg BID SQ 08/19/21 09:00 09/18/21 08:59 08/19/21 09:08 Famotidine (Pepcid) 20 mg BID PO 08/19/21 09:00 09/18/21 08:59 08/19/21 09:08 Ceftriaxone Sodium 1000 mg/ Sodium Chloride 100 ml @ 100 mls/hr Q24HRS IV 08/19/21 00:00 09/18/21 00:00 08/19/21 06:51 Azithromycin 500 mg/Sodium Chloride 250 ml @ 175 mls/hr Q24HRS IV 08/19/21 00:00 09/18/21 00:00 08/19/21 09:08 Guaifenesin (Mucinex) 600 mg BID PO 08/19/21 09:00 09/18/21 08:59 08/19/21 09:07 Sodium Chloride 250 ml @ ud STK-MED ONCE .ROUTE 08/19/21 02:17 08/19/21 02:17 DC Ceftriaxone Sodium (Rocephin) 1,000 mg STK-MED ONCE .ROUTE 08/19/21 06:49 08/19/21 06:49 DC Sodium Chloride 100 ml @ ud STK-MED ONCE IV 08/19/21 06:49 08/19/21 06:49 DC Sodium Chloride 250 ml @ ud STK-MED ONCE .ROUTE 08/19/21 09:00 08/19/21 09:01 DC Assessment/Plan Assessment/Plan Assessment/Plan Plan Oxygen to keep saturation more than 92% Remdesivir Steroids GI and DVT prophylaxis Possible discharge in a.m. if patient stable.Will do oxygen challenge test in a.m. Problems: (1) Acute respiratory failure with hypoxia ICD Code: J96.01 - Acute respiratory failure with hypoxia SNOMED: 90615356, 924942012 (2) Pneumonia due to COVID-19 virus ICD Code: U07.1 - COVID-19; J12.82 - Pneumonia due to coronavirus disease 2019 SNOMED: 966343930260379943 JEREMIAH SUN MD Aug 22, 2021 13:28
[2021-08-22 17:02] VITALS: BP 109/78
[2021-08-22 19:00] VITALS: BP 122/85
[2021-08-22] MEDS: REMDESIVIR (EUA) 100 MG in NS 100ML 100 ML IV SCH (19:55)
[2021-08-23 00:01] VITALS: BP 117/82
[2021-08-23 05:02] VITALS: BP 105/65
[2021-08-23 07:44] VITALS: BP 107/69
--- NOTE | 2021-08-23 09:05 | NUR ---
O2 Challenge- Pt was 93% on RA while sitting in bed when I arrived. Walked pt in room for 3 minutes off O2.. pt sats dropped to 80% after 3 minutes of walking... Pt tolerated well. NO distress noted during this challenge. Very cooperative.
[2021-08-23] MEDS ORDERED: DEXA4TAB PO (09:17)
[2021-08-23] MEDS: DECADRON IV SCH (09:21)
[2021-08-23] MEDS: LOVENOX SQ SCH (09:21)
[2021-08-23] MEDS: ZINC SULFATE PO SCH (09:21)
[2021-08-23] MEDS: MUCINEX PO SCH (09:22)
[2021-08-23] MEDS: PEPCID PO SCH (09:22)
[2021-08-23] MEDS: VITAMIN C PO SCH (09:22)
[2021-08-23 11:09] VITALS: BP 107/69
--- NOTE | 2021-08-23 11:39 | PRM.DC ---
Discharge Summary Date of Discharge: Aug 23, 2021 Time of Request to Discharge: 12:00 Hospital Course 31yo HM who presents to [facility] as a transfer patient from [facility] for Acute Respiratory Failure due to COVID-19 Pneumonia. Patient reports having worsening SOB, cough (mostly non-productive), congestion, fever and chills for the past 7-10 days. He also reports losing his sense of taste and smell for several days, but states that these have since returned to normal. Pt is also complaining of feeling light-headed with generalized weakness, to the point where he can barely walk to the Restroom alone without assistance. Patient was seen by his PCP in clinic earlier today where he was noted to be tachycardic (HR 130's), tachypneic (RR 30-40's), and hypoxic (O2 sats 80-85% RA) with moderate respiratory distress. A SARS-CoV-2 Rapid Ag Test done in clinic was found to be negative. Pt was then sent to the [place] ED for further evaluation at which time a COVID PCR test was found to be positive. Given Pt's worsening symptoms and the ED Physician's concern for eventual intubation, Pt was then transferred here to [facility] for a higher level of care. Patient was started on supplemental oxygen, IV steroids, empiric antibiotic, remdesivir,. Patient initially required around 3 L/min nasal cannula. Con dition gradually improved, Patient is feeling better this morning. On room air oxygen saturation is around 91% with ambulation still desaturating in the low 80s. Arrangements for home oxygen given. Prescription given for the patient to continue with dexamethasone. Few more days. Patient will be discharged home. Discharge condition stable. Activity as tolerated. Follow-up with your primary care provider in 1 to 2 weeks. Patient was advised to go to the emergency room if his condition started deteriorating, more short of breath, developing new fever. Patient discharged stable condition. Exam/Vitals 120/70, heart rate 80, respiratory rate 14, temperature 98 General: Alert, Oriented X3 HEENT: Atraumatic, PERRLA Neck: Supple, No JVD Lungs: Clear to auscultation, Normal air movement Heart: Regular rate, Normal S1, Normal S2 Abdomen: Normal bowel sounds, Soft, No tenderness Extremities: No clubbing, No cyanosis Skin: No rashes, No breakdown Neuro: Normal speech, Normal tone Psych/Mental Status: Mental status NL, Mood NL Scheduled Dexamethasone (Dexamethasone), 4 TAB PO DAILY Sepsis Evaluation @ Discharge 08/23/21 09:45 Plan Problems: (1) Acute respiratory failure with hypoxia ICD Code: J96.01 - Acute respiratory failure with hypoxia SNOMED: 36541244, [id number] (2) Pneumonia due to COVID-19 virus ICD Code: U07.1 - COVID-19; J12.82 - Pneumonia due to coronavirus disease 2018 SNOMED: [id number] Discharge Date: Aug 23, 2021 Discharge Disposition: Stable Plan 31yo HM who presents to [facility] as a transfer patient from [facility] for Acute Respiratory Failure due to COVID-19 Pneumonia. Patient reports having worsening SOB, cough (mostly non-productive), congestion, fever and chills for the past 7-10 days. He also reports losing his sense of taste and smell for several days, but states that these have since returned to normal. Pt is also complaining of feeling light-headed with generalized weakness, to the point where he can barely walk to the Restroom alone without assistance. Patient was seen by his PCP in clinic earlier today where he was noted to be tachycardic (HR 130's), tachypneic (RR 30-40's), and hypoxic (O2 sats 80-85% RA) with moderate respiratory distress. A SARS-CoV-2 Rapid Ag Test done in clinic was found to be negative. Pt was then sent to the [place] ED for further evaluation at which time a COVID PCR test was found to be positive. Given Pt's worsening symptoms and the ED Physician's concern for eventual intubation, Pt was then transferred here to [facility] for a higher level of care. Patient was started on supplemental oxygen, IV steroids, empiric antibiotic, remdesivir,. Patient initially required around 3 L/min nasal cannula. Condition gradually improved, Patient is feeling better this morning. On room a ir oxygen saturation is around 91% with ambulation still desaturating in the low 80s. Arrangements for home oxygen given. Prescription given for the patient to continue with dexamethasone. Few more days. Patient will be discharged home. Discharge condition stable. Activity as tolerated. Follow-up with your primary care provider in 1 to 2 weeks. Patient was advised to go to the emergency room if his condition started deteriorating, more short of breath, developing new fever. Patient discharged stable condition. JEREMIAH SUN MD Aug 23, 2021 11:39
--- NOTE | 2021-08-23 12:00 | NUR ---
DISCHARGE PT DISCHARGED AT THIS TIME IN STABLE CONDITION. IV DISCONTINUED. PT TOLERATED WELL. CATHETER TIP IN TACT ON REMOVAL. PT EDUCATED ON DEXAMETHASONE THERAPY INCLUDING MECHANISM OF ACTION, INDICATION, AND POTENTIAL SIDE EFFECT OF INCREASED BLOOD GLUCOSE. PT EDUCATED ON IMPORTANCE OF HOME PULSE OXIMETRY. PT AMBULATORY TO PRIVATE AUTO. DISCHARGED ON ROOM AIR WITH HOME OXYGEN PRN. TO F/U WITH [facility]. THIS NURSE RELINQUISHES CARE OF PT AT THIS TIME.
== END 2021-08-23 11:35 | disposition home or self-care (01) | DRG 177 ==
LOC: MS 21:50
PROVIDERS: ADMIT Family Medicine; ATTEND Family Medicine
PROC: XW033E5 Introduction of Remdesivir Anti-infective into Peripheral Vein, Percutaneous Approach, New Technology Group 5 (ICD-10-PCS; principal; 2021-08-19)
DX: U07.1 COVID-19 (principal); J12.82 Pneumonia due to coronavirus disease 2019; J96.21 Acute and chronic respiratory failure with hypoxia
CPT/HCPCS: 36415; 71045; 80053; 80074; 81001; 82306; 82728; 83615; 83735; 84100; 84145; 85025; 85379; 85610; 85730; 86140; 87040; 87070; 87086; 87205; 87804; 93005; G0378; J0456; J0696; J1100; J1650; J7050